=== PATIENT | female | born 1965 | race Caucasian/White ===

== ENCOUNTER → 2017-03-08 | Outpatient (CLI) | payer OTHER | END | disposition home or self-care (01) | LOC: CFH 12:34 | PROVIDERS: ATTEND Obstetrics & Gynecology Female Pelvic Medicine and Reconstructive Surgery | DX: N60.02 Solitary cyst of left breast (principal); N64.52 Nipple discharge; N95.0 Postmenopausal bleeding; N64.3 Galactorrhea not associated with childbirth | CPT/HCPCS: 76641; 76830; G0204 ==

== ENCOUNTER 2019-02-08 08:24 | Outpatient (CLI) | payer OTHER | END 2019-02-08 23:59 | disposition home or self-care (01) | LOC: CARD 08:24 | PROVIDERS: ATTEND Nurse Practitioner Family | DX: G43.009 Migraine without aura, not intractable, without status migrainosus (principal) | CPT/HCPCS: 95819 ==